=== PATIENT | female | born 2005 | race Caucasian/White ===

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

== ENCOUNTER 2024-12-27 08:51 | Emergency (ER) | payer OTHER, SELFPAY ==
[2024-12-27 08:52] VITALS: BP 136/99; PULSE 62; RESP 18; TEMP 37.1; O2SAT 100; BMI 18.7
--- NOTE | 2024-12-27 09:06 | EDS_ITS ---
HPI History of Present Illness Chief Complaint: Syncope Narrative Narrative: 19-year-old female, previous history of vasovagal near syncope, presents with her mother because of vasovagal near syncope that happened this morning. States yesterday everything was fine but this morning she had 4 episodes of diarrhea in the last 24 hours. It is nonbloody. Denies any fevers or chills, no nausea or vomiting. She felt very shaky afterwards and near syncopal. She has not had a vasovagal episode in approximately 1 year. She states that it happened a few more times afterwards but the symptoms were lessening for the last 4 times. She felt shaky today. They went to urgent care but were told that they needed to come to the emergency department for further evaluation. She is feeling slightly improved. Additionally, she admits that she is under a lot of stress and was so yesterday. Cardiac cai she has history of right bundle branch block that they found when she had surgery to remove metal plate from her left forearm. PFSH [facility] Home Medications ?Medication ?Instructions ?Recorded ?Last Taken ?Type dextroamphetamine-amphetamine ER 1 ea PO DAILY 5 Unknown History 25 mg capsule,3 bead,ext release 24hr etonogestrel 0.12 mg-ethinyl vag ring vaginal 12/27/24 Unknown History estradiol 0.015 mg/24 hr vaginal ring (EnilloRing) Allergy/AdvReac Type Severity Reaction Status Date / Time No Known Allergies Allergy Verified 08/18/15 15:14 Surgical History (Updated 12/27/24 @ 09:58 by Shelly Moreland) History of surgery on arm Social History Smoking Status: Never smoker ROS ROS ED ROS Narrative Review of systems positive for near syncope and shakiness. No fevers or chills, no nausea or vomiting. Positive diarrhea, nonbloody. No abdominal pain. Under stressors. EXAM Physical Exam Narrative Exam Narrative: Afebrile. Vital signs noted. Nontoxic-appearing. Cardiovascular examination reveals a regular rate and rhythm. Lungs are clear to auscultation bilaterally. Abdomen is soft and nontender without guarding or rebound. Positive bowel sounds. Neurological examination is nonfocal and nonlateralizing. Awake, alert, oriented. Const Vital Signs: 12/27/24 08:52 12/27/24 09:58 Temperature 98.7 F Temperature Source Oral Pulse Rate 62 Respiratory Rate 18 Respiratory Effort Normal Respiratory Pattern Normal Blood Pressure 136/99 H Blood Pressure Mean 111 Pulse Ox 100 Oxygen Delivery Method Room Air MDM MDM MDM Narrative Medical decision making narrative: Differential diagnosis includes but not limited to dehydration versus other electrolyte abnormality versus intravascular volume depletion versus vasovagal near syncope. Patient be bolused normal saline 1 L intravenously. I will check her CBC and BMP as well as the serum test. EKG was obtained and interpreted by myself independently as sinus tachycardia at 109 bpm without ectopy or acute ST changes. No STEMI. QTc 461 ms. I reviewed her laboratory work and she has normal white count of 10.1 with hemoglobin normal at 13.7, platelet count normal at 355. BMP is grossly normal with a BUN of 8 creatinine 0.6, sodium normal 137 and potassium 4.0. Serum test is negative. After IV fluids upon repeat examination at approximately 10:50 AM, she feels improved. Current heart rate 62 bpm and pulse ox 100% on room air. She is not hypotensive. I feel she can be discharged safely home with follow-up. She may have had more of an intravascular volume depletion and vasovagal near syncope. Return instructions to the emergency department were reviewed. Patient motivated for discharge. Disposition is discharged home in stable condition. History & Record Review Discussion w/independent historian: Patient Lab Data Attestation: I reviewed the patient's lab results. Labs: Laboratory Results - last 24 hr 12/27/24 09:39 WBC 10.1 RBC 4.77 Hgb 13.7 Hct 39.1 MCV 82.0 MCH 28.7 MCHC 35.0 RDW Std Deviation 33.7 L RDW Coeff of Quinn 11.5 L Plt Count 355 MPV 9.0 Immature Gran % (Auto) 0.400 Neut % (Auto) 81.9 H Lymph % (Auto) 12.2 L [place] % (Auto) 4.4 Eos % (Auto) 0.5 Baso % (Auto) 0.6 Absolute Neuts (auto) 8.3 H Absolute Lymphs (auto) 1.23 Nucleated RBC % 0 Sodium 137 Potassium 4.0 Chloride Direct 103 Carbon Dioxide 21.3 L Anion Gap 13 BUN 8 Creatinine 0.6 Estim Creat Clear Calc 108.75 Est GFR (MDRD) Non-Af 134 BUN/Creatinine Ratio 14.7 Glucose 96 Calcium 9.2 Serum , Qual NEGATIVE Discharge Plan Triage Chief Complaint: Syncope ED Provider: Dong Reynaga Dx/Rx/DC Orders Clinical Impression: Vasovagal near-syncope, Intravascular volume depletion, Diarrhea Instructions: ED Diarrhea, Unknown Cause, ED Near-Fainting- Vagal Reaction Prescriptions: No Action dextroamphetamine-amphetamine 25 mg capsule, ER triphasic 24 hr 1 ea PO DAILY etonogestrel-ethinyl estradiol [EnilloRing] 0.12-0.015 mg/24 hr ring VAGINAL Patient Comments: Insert 1 vaginally and leave in place for 3 consecutive weeks, then remove for 1 week. Primary Care Provider: Yohannes Peter Referrals: Yonny Dobbs MD [Non-Staff] - Activity Restrictions/Additional Instructions: Drink plenty of oral fluids. Follow-up with your primary care provider. Return with syncope, new or worsening symptoms. Print Language: Swedish Disposition Disposition: Home, Self Care
[2024-12-27] MEDS: 0.9% Normal Saline (1000mL) 1,000 ML 1000 ML IV (09:41)
[2024-12-27 09:50] LABS: Absolute Lymphocyte Count 1.23 X10^3/uL (0.83-4.51); Absolute Neutrophil Count 8.3 X10^3/uL (2.0-7.7); Basophil# 0.06 X10^3/uL; Basophil% 0.6 % (0-1); Eosinophil# 0.05 X10^3/uL; Eosinophils% 0.5 % (0-5); Hematocrit 39.1 % (37-47); Hemoglobin 13.7 g/dL (12.0-15.0); Lymphocyte # 1.23 X10^3/ul (0.83-4.51); Lymphocyte % 12.2 % (19-41); Mean Corpuscular Hgb 28.7 pg (27.0-32.0); Monocyte# 0.45 X10^3/uL; Monocyte% 4.4 % (0-10); NRBC Flagged by Analyzer 0 % (0-5); Neutrophil # 8.29 X10^3/uL (2.7-7.7); Neutrophil % 81.9 % (47-70); Platelet Count 355 K/mm3 (150-450); RBC Distribution Width CV 11.5 % (11.6-14.6); RBC Distribution Width SD 33.7 fl (35.1-43.9); Red Blood Count 4.77 M/mm3 (4.2-5.4); White Blood Count 10.1 K/mm3 (4.4-11.0)
[2024-12-27 10:02] LABS: Internal QC Validated? YES +Cl - CLEAR BKGD; Pregnancy, Serum, hCG Quali. NEGATIVE Negative
[2024-12-27 10:17] LABS: Anion Gap 13 (5-15); BUN 8 mg/dL (4-19); BUN/Creat Ratio 14.7 RATIO (10-20); Calcium 9.2 mg/dL (7.6-11.0); Carbon Dioxide 21.3 mmol/L (22.0-29.0); Chloride 103 mmol/L (96-108); Creatinine, Serum 0.6 mg/dL (0.6-1.0); EST Glomerular Filtration Rate 134 (>60); Estimated Creatinine Clearance 108.75 ml/min; Glucose 96 mg/dL (70-99); Sodium Level 137 mmol/L (133-145)
[2024-12-27 11:14] VITALS: BP 121/78; PULSE 64; RESP 18; TEMP 36.6; O2SAT 99
== END 2024-12-27 11:15 | disposition home or self-care (01) ==
PROVIDERS: Emergency Provider Emergency Medicine; PCP Family Medicine; Visit Provider Emergency Medicine
DX: R55 Syncope and collapse (principal); E86.9 Volume depletion, unspecified; R19.7 Diarrhea, unspecified
CPT/HCPCS: 80048; 84703; 85025; 93005; 99284; A4216